=== PATIENT | male | born 1955 | race Caucasian/White ===

== ENCOUNTER 2025-06-29 12:15 | Day surgery (SDC) | payer MEDICARE, MEDICAID ==
--- NOTE | 2025-06-28 11:46 | ELECTROCARDIOGRAPH REPORT ---
[facility] Test Date: 2025-06-28 Test Time: 11:44:46 Pat Name: MOHSEN NAVARRO Department: [facility]-PRE-OP Patient ID: [facility]-[id number] Room: Gender: M Utility Bagger: : 1955 Requested By: ANNAMARIE ANGELES Order Number: [id number] Reading MD: Dr. ZARA Jauregui Measurements Intervals [place] Rate: 60 P: 52 ND: 155 QRS: -177 QRSD: 143 T: 5 QT: 436 QTc: 436 Interpretive Statements Sinus rhythm Consider left atrial enlargement RBBB and LPFB Electronically Signed On 06-28-2025 19:07:[address] ZARA Jauregui Please click the below link to view image of tracing.
[2025-06-28 12:08] LABS: MEAN PLATELET VOLUME 8.4 FL (7.4-10.4); PRE OP HEMATOCRIT 43.5 % (42.0-52.0); PRE OP HEMOGLOBIN 14.7 g/dL (14.0-17.9); PRE OP PLATELET COUNT 201 X10'3 (140-440); PRE OP WHITE BLOOD COUNT 5.0 10'3 (4.8-10.8); RED CELL DISTRIBUTION WIDTH 14.0 % (11.5-14.5)
[2025-06-28 12:34] LABS: CREATININE 0.86 MG/DL (0.60-1.10); PRE OP ALT 30 U/L (30-65); PRE OP ANION GAP 7 (8-16); PRE OP AST 22 U/L (10-37); PRE OP BILIRUB, TOTAL 0.7 MG/DL (0.0-1.0); PRE OP GLUCOSE 94 MG/DL (70-104); PRE OP POTASSIUM 4.2 MMOL/L (3.4-5.1); PRE OP SODIUM 141 MMOL/L (135-145); TOTAL CARBON DIOXIDE 28.2 MMOL/L (24-32); eGFR 87 ML/MIN
[2025-06-29] VITALS (16 sets, daily range): BP systolic 100–139; BP diastolic 62–97; PULSE 48–64; RESP 10–16; TEMP 98.7; O2SAT 93–99
[~2025-06-29] VITALS: Ht 167.6 cm; Wt 84.2 kg
[~2025-06-29 12:15] MED LIST: ASCO10004 PO; BUPIVAcaine 2.5mg/ml inj 50ml vial (contains preservative) ONE; LIDOcaine 1% 30ml preserv. free vial ONE
[2025-06-29] MEDS: ringers solution, lacted 1,000 ML IV SCH (13:03)
[2025-06-29] MEDS: ceFAZolin 2gm/dext,iso 50mL 50 ML IV ONE (13:04)
[2025-06-29] MEDS ORDERED: BUPIVACAINE liposomal/PF 13.3 MG/ML 10mL vial IM ONE (14:04)
[2025-06-29] MEDS ORDERED: midazolam 1 mg/ML 2ml injection ONE (14:11)
[2025-06-29] MEDS ORDERED: fentaNYL /PF 50mcg/ml 5ml ampule ONE (14:11)
--- NOTE | 2025-06-29 14:16 | HISTORY AND PHYSICAL ---
History & Physical Providers to CC CC: ANNAMARIE ANGELES MD ~ History of Present Illness Reason for Admit\Complaint: Left-sided spigelian hernia History of Present Illness Interval history and physical exam Patient was seen in the office greater than 30 days ago and found to have a fairly large left-sided spigelian hernia that was symptomatic He was scheduled for surgery He is here today for elective repair He denies any change in his past medical history since he was seen in the office (please see previous history and physical exam for all pertinent details) He is scheduled for robotic assisted, laparoscopic left spigelian hernia repair with mesh Allergies: Coded Allergies: acetaminophen (Verified Allergy, Severe, 06/28/25) ibuprofen (Verified Allergy, Severe, 06/28/25) naproxen (Verified Allergy, Severe, 06/28/25) Home Medications Home Medications Active Reported Vitamin C (Ascorbic Acid) 1,000 Mg Tablet 1 Tab PO DAILY 15 Days DIRECTED Exam Chest: Lungs clear to auscultation bilaterally Cardiovascular: Regular rate and rhythm without murmur Abdomen: Soft and nondistended Palpable mass along the linea semilunaris, left, just below the level of the umbilicus Diagnostic Data Last Recorded Lab Results: 06/28/25 1147 06/28/25 1147 Problems: (1) Spigelian hernia Assessment & Plan: The risks, benefits, and alternatives to a robotic assisted, laparoscopic left spigelian hernia repair with mesh were discussed with the patient. Risks include, but are not limited to, bleeding, infection, injury to intra-abdominal structures, hernia recurrence and chronic postoperative pain. Patient verbalized understanding and wishes to proceed with surgery. We will do so today as scheduled ANNAMARIE ANGELES MD Jun 29, 2025 14:16
[2025-06-29] MEDS ORDERED: ringers solution, lacted 1,000 ML IV SCH (14:20)
[2025-06-29] MEDS ORDERED: HYDROmorphone/PF 0.2 MG/ML SYRINGE IV PRN ×2 (14:20)
[2025-06-29] MEDS ORDERED: labetalol 20mg/4ml (5mg/ml) syringe IV PRN (14:20)
[2025-06-29] MEDS ORDERED: ondansetron/PF 4mg/2ml inj IV PRN (14:20)
[2025-06-29] MEDS ORDERED: hydrALAZINE 20mg/ml inj. IV PRN (14:20)
[2025-06-29] MEDS ORDERED: propofol inj 20 ML IV ONE (14:21)
[2025-06-29] MEDS ORDERED: rocuronium 10mg/ml inj IV ONE (14:21)
[2025-06-29] MEDS ORDERED: LIDOcaine 1%/PF 5ML 10 MG/ML VIAL ONE (14:21)
[2025-06-29] MEDS ORDERED: ondansetron/PF 4mg/2ml inj ONE (14:24)
[2025-06-29] MEDS ORDERED: dexamethasone sod phosphate 4mg/ml inj. ONE (14:24)
[2025-06-29] MEDS ORDERED: glycopyrrolate 0.2mg/ml inj ONE (15:31)
[2025-06-29] MEDS: morphine 4 MG/ML inj SYRINge IV PRN (15:58)
[2025-06-29] MEDS ORDERED: oxyCODONE IR 5mg (immed. release) tablet PO PRN (16:05)
[2025-06-29] MEDS ORDERED: oxyCODONE/APAP 5-325mg tablet PO PRN (16:05)
--- NOTE | 2025-06-30 00:05 | OPERATIVE REPORT ---
Operative Report Providers to CC CC: DANIEL ANGELES MD ~ Date of Procedure: Jun 29, 2025 Pre-Operative Diagnosis: Left-sided spigelian hernia Post-Operative Diagnosis 5 cm left sided spigelian hernia Procedure Performed Robotic assisted, laparoscopic 5 cm spigelian hernia repair with mesh Transversus abdominis plane blocks, bilateral with 266 mg of Exparel Surgeon: Daniel Angeles MD FACS [employer] None Anesthesiologist: Susie Mckeon Type of Anesthesia: General Findings: 5 cm spigelian hernia in the left lower quadrant with a loop of sigmoid colon in the hernia sac Wound class I Complications None Prosthetics\Implants used: 10 x 12 cm ProGrip mesh Estimated Blood Loss: Minimal Specimen Removed: None Description of Procedure: Patient was brought to the operating room and identified by the nursing staff and the attending physician. Patient was placed supine and general anesthesia was induced. Preoperative antibiotics were given. Abdomen was prepped and draped in the standard sterile fashion. Veress needle technique was used and the abdomen was insufflated without incident. Abdomen was entered through the right mid abdomen and surveyed laparoscopically. There was a large fascial defect in the left lower quadrant at about the level of the left linea semilunaris. Patient was placed in Trendelenburg with the left side up. Additional, 8.5 mm robotic trocars were placed in the right lower quadrant and left upper abdomen. The [employer] robotic arm was docked to the patient and instruments were guided into the abdomen laparoscopically. A preperitoneal plane was developed beginning about 5 cm above the fascial defect. The dissection was carried down to the edge of the defect and a very large hernia sac was mobilized out of the abdominal wall. Medial and lateral as well as retroperitoneal dissection continued in the preperitoneal space. The entire hernia sac was completely mobilized as was a moderate amount of preperitoneal fat. Once good circumferential dissection was obtained, the fascial defect was closed with a running long absorbing V lock suture. In the preperitoneal space a 10 x 12 cm ProGrip mesh was passed. This was secured to the anterior abdominal wall, centered at the repaired defect. Peritoneal rent was then closed with a running absorbable suture. [place] were retrieved. Ports were removed and the abdomen was allowed to deflate. Skin was closed at all sites with 4-0 Monocryl sutures in a subcuticular fashion. Sterile dressings were applied. Patient was awakened and taken to the postanesthesia care unit in stable condition. Counts repoted as correct: Yes DANIEL ANGELES MD Jun 30, 2025 00:05
== END 2025-06-29 18:39 | disposition home or self-care (01) ==
LOC: PAS 12:15
PROVIDERS: ATTEND Surgery
DX: K43.9 Ventral hernia without obstruction or gangrene (principal); I45.2 Bifascicular block; Z79.1 Long term (current) use of non-steroidal anti-inflammatories (NSAID); Z79.899 Other long term (current) drug therapy; Z88.6 Allergy status to analgesic agent; Z88.8 Allergy status to other drugs, medicaments and biological substances
CPT/HCPCS: 36415; 80053; 82948; 85025; 93005; A4215; A4314; A4618; C1781; J0666; J1100; J2003; J2250; J2270; J2405; J2704; J2710; J3010; J3490; J7120